=== PATIENT | female | born 1995 | race Caucasian/White ===

== ENCOUNTER 2021-10-25 04:58 | Inpatient (IN) | payer BC ==
[2021-10-25] MEDS ORDERED: Ketorolac Tromethamine 30 MG/ML VIAL IVP PRN (06:39)
[2021-10-25 06:40] VITALS: BMI 27.3
[2021-10-25] MEDS ORDERED: Fentanyl 100 MCG/2 ML VIAL SLOW IVP PRN (06:41)
[2021-10-25] MEDS ORDERED: D5 1/2 NS w/20 mEq KCL 1,000 ML IV SCH (06:45)
[2021-10-25] MEDS ORDERED: Piperacillin/Tazobactam 3.375 GM in Sodium Chloride 0.9% 100 ML IVPB SCH (06:45)
[2021-10-25] MEDS ORDERED: Ondansetron ODT 4 MG TAB SL PRN (06:45)
[2021-10-25] MEDS ORDERED: Ondansetron PF 4 MG/2 ML Vial IVP PRN ×2 (06:45→09:19)
[2021-10-25] MEDS ORDERED: Lactated Ringer's 1,000 ML IV SCH ×2 (09:30→15:30)
[2021-10-25] MEDS: Piperacillin/Tazobactam 3.375 GM in Sodium Chloride 0.9% 100 ML IVPB SCH ×2 (14:36→20:31)
[2021-10-25] MEDS ORDERED: Lactated Ringer's 500 ML IV SCH (15:45)
[2021-10-25] MEDS: Lactated Ringer's 1,000 ML IV SCH (16:52)
[2021-10-25] MEDS: Famotidine/PF 20 mg/2ml Vial SLOW IVP SCH (20:31)
[2021-10-26 02:45] LABS: SARS-CoV-2 NAA Rapid Test DETECTED (NotDetected)
[2021-10-26] MEDS: Piperacillin/Tazobactam 3.375 GM in Sodium Chloride 0.9% 100 ML IVPB SCH ×2 (04:22→15:53)
[2021-10-26] MEDS: Lactated Ringer's 1,000 ML IV SCH ×2 (04:23→15:53)
[2021-10-26 06:38] LABS: #Basophils 0.1 thou/uL (0.0-0.2); #Eosinphils 0.2 thou/uL (0.0-0.7); #Lymphocytes 2.4 thou/uL (1.20-3.40); #Monocytes 0.6 thou/uL (0.11-0.59); #Neutrophils 2.7 thou/uL (1.40-6.50); %Basophils 1.3 % (0.0-1.0); %Eosinophils 3.7 % (0.0-10.0); %Lymphocytes 39.4 % (21.0-51.0); %Monocytes 9.9 % (0.0-10.0); %Neutrophils 45.6 % (42.0-75.0); Mean Corpuscular Hemoglobin 30.6 pg (27.0-31.0); Mean Corpuscular Volume 95.7 fL (78.0-98.0); Platelet Count 242 thou/uL (130-400); Red Blood Cell (RBC) Count 4.56 mill/uL (4.20-5.40)
[2021-10-26 06:56] LABS: ALT (SGPT) 202 U/L (8-55); AST (SGOT) 121 U/L (5-34); Albumin 3.4 g/dL (3.5-5.0); Alkaline Phosphatase 103 U/L (40-110); Bilirubin, Direct 0.4 mg/dL (0.1-0.3); Bilirubin, Total 0.9 mg/dL (0.2-1.2); Protein, Total 6.1 g/dL (6.0-8.3)
[2021-10-26 06:57] LABS: Anion Gap 12 mmol/L (10-20); BUN (Urea Nitrogen) Less than 4 mg/dL (7.0-18.7); Calc. Creatinine Clearance 137 mL/min (70-130); Calcium 8.8 mg/dL (7.8-10.44); Carbon Dioxide 22 mmol/L (22-29); Chloride 107 mmol/L (98-107); Glucose 78 mg/dL (70-105); Lipase 45 U/L (8-78); Potassium 4.1 mmol/L (3.5-5.1); Sodium 137 mmol/L (136-145)
[2021-10-26] MEDS ORDERED: Morphine 4 MG/ML VIAL SLOW IVP PRN ×3 (10:10→13:31)
[2021-10-26] MEDS: Famotidine/PF 20 mg/2ml Vial SLOW IVP SCH ×2 (10:27→23:18)
[2021-10-26] MEDS ORDERED: Bupivacaine 0.25% HCL 30 ML VIAL ONE (11:58)
[2021-10-26] MEDS ORDERED: Xylocaine 1% w/ Epi 1:100K 10 ML VIAL ONE (11:58)
[2021-10-26] MEDS ORDERED: Midazolam HCl 2 mg/2 ml Vial ONE (11:59)
[2021-10-26] MEDS ORDERED: Fentanyl 100 MCG/2 ML VIAL ONE ×2 (11:59→13:18)
[2021-10-26] MEDS ORDERED: Iothalamate Meglumine 60% 50 ML VIAL FS ONE (12:11)
[2021-10-26] MEDS ORDERED: PHENYLEPHRINE-NS 100 MCG/ML 10 ML SYRINGE ONE (12:28)
[2021-10-26] MEDS ORDERED: Rocuronium Bromide 10 MG/ML (10ML VIAL) ONE (12:28)
[2021-10-26] MEDS ORDERED: Lidocaine 1% PF 5 ML VIAL ONE (12:28)
[2021-10-26] MEDS ORDERED: Glycopyrrolate 0.2 MG/ML 5 ML SYRINGE ONE (12:28)
[2021-10-26] MEDS ORDERED: PROPOFOL 200 MG/20 ML VIAL ONE (12:28)
[2021-10-26] MEDS ORDERED: Ketorolac Tromethamine 30 MG/ML VIAL ONE (12:28)
[2021-10-26] MEDS ORDERED: Ondansetron PF 4 MG/2 ML Vial ONE (12:28)
[2021-10-26] MEDS ORDERED: Dexamethasone 20 MG/5 ML VIAL ONE (12:28)
[2021-10-26] MEDS ORDERED: Promethazine HCl 25 MG/ML VIAL IVPB PRN (12:51)
[2021-10-26] MEDS ORDERED: Meperidine HCl/PF 25 MG/ML VIAL SLOW IVP PRN (12:51)
[2021-10-26] MEDS ORDERED: Promethazine HCl 25 MG/ML VIAL IM PRN ×2 (12:51→13:31)
[2021-10-26] MEDS ORDERED: Ondansetron HCl/PF 4 MG/2 ML Vial IVP PRN (12:51)
[2021-10-26] MEDS ORDERED: HYDROcodone/Acetaminophen 7.5/325 mg Tablet PO PRN (13:31)
[2021-10-26] MEDS ORDERED: Calcium Carbonate 500 MG ChewTAB PO PRN (13:31)
[2021-10-26] MEDS ORDERED: Ondansetron PF 4 MG/2 ML Vial IVP PRN (13:31)
[2021-10-26] MEDS ORDERED: Dextrose 50% Abboject 50 ML SYRINGE SLOW IVP PRN (13:31)
[2021-10-26] MEDS ORDERED: hydrALAZINE 20 MG/ML VIAL SLOW IVP PRN (13:31)
[2021-10-26] MEDS ORDERED: Dextrose 5% in Water 1,000 ML IV PRN (13:31)
[2021-10-26] MEDS ORDERED: Mag-Al 1200 mg/1200 mg/30 ML UDCUP PO PRN (13:31)
[2021-10-26] MEDS: D5 1/2 NS w/20 mEq KCL 1,000 ML IV SCH (14:38)
[2021-10-26] MEDS: Famotidine 20 MG TAB PO SCH (23:19)
[2021-10-27 03:18] VITALS: TEMP 98.2
[2021-10-27] MEDS: D5 1/2 NS w/20 mEq KCL 1,000 ML IV SCH (03:27)
[2021-10-27 08:29] VITALS: BP 104/69
[2021-10-27] MEDS: Famotidine 20 MG TAB PO SCH (09:46)
[2021-10-27] MEDS: Famotidine/PF 20 mg/2ml Vial SLOW IVP SCH (09:46)
== END 2021-10-27 11:33 | disposition home or self-care (01) | DRG 417 ==
LOC: SURG B 06:08
PROVIDERS: ADMIT Internal Medicine; ATTEND Internal Medicine
PROC: 8E0ZXY6 Isolation (ICD-10-PCS; 2021-10-25)
PROC: 0FT44ZZ Resection of Gallbladder, Percutaneous Endoscopic Approach (ICD-10-PCS; principal; 2021-10-26)
PROC: BF131ZZ Fluoroscopy of Gallbladder and Bile Ducts using Low Osmolar Contrast (ICD-10-PCS; 2021-10-26)
DX: K80.71 Calculus of gallbladder and bile duct without cholecystitis with obstruction (principal); K85.10 Biliary acute pancreatitis without necrosis or infection; U07.1 COVID-19; G43.909 Migraine, unspecified, not intractable, without status migrainosus; F32.A Depression, unspecified; Z98.84 Bariatric surgery status
CPT/HCPCS: 36415; 47532; 76705; 80048; 80076; 83690; 85025; C1713; J1100; J1885; J2250; J2270; J2405; J2543; J2704; J3010; J3480; J3490; J7120; Q9961-U8; S0020; S0028; U0002